=== PATIENT | female | born 1965 | race Caucasian/White ===

== ENCOUNTER 2018-05-22 09:31 | Emergency (ER) | payer MEDICAID ==
[~2018-05-22] VITALS: Ht 160 cm; Wt 65.1 kg
[2018-05-22] MEDS ORDERED: HYDR25TA PO (09:46)
[2018-05-22 09:49] LABS: GLUCOSE,POINT OF CARE 131 MG/DL (70-110)
[2018-05-22 10:05] LABS: BASOPHILS % (AUTO) 0.8 % (0.0-2.0); EOSINOPHILS % (AUTO) 1.4 % (1.0-6.0); HEMOGLOBIN 14.3 g/dL (12.0-16.0); LYMPHOCYTES # (AUTO) 2.5 K/uL (1.0-4.8); LYMPHOCYTES % (AUTO) 19.5 % (22.0-44.0); MEAN CORPUSCULAR HEMOGLOBIN 28.5 pg (26.0-34.0); MEAN CORPUSCULAR HGB CONC 32.6 G/dL (31.0-37.0); MEAN CORPUSCULAR VOLUME 88 fL (80-100); MONOCYTES # (AUTO) 1.3 K/uL (0.1-1.0); MONOCYTES % (AUTO) 9.7 % (2.0-9.0); NEUTROPHILS # (AUTO) 8.9 K/uL (1.8-7.7); NEUTROPHILS % (AUTO) 68.6 % (40.0-70.0); PLATELET COUNT (AUTO) 252 K/uL (150-450); RED BLOOD CELL COUNT(AUTO) 5.02 MIL/uL (4.00-5.20); RED CELL DISTRIBUTION WIDTH 14.4 % (11.5-14.5)
[2018-05-22 10:14] LABS: ANION GAP 7 mmol/L (8-16); CALCIUM, TOTAL 9.8 mg/dL (8.8-10.5); CARBON DIOXIDE 27 mmol/L (22-29); CHLORIDE 104 mmol/L (98-107); CREATININE 1.29 mg/dL (0.60-1.30); GLOMERULAR FILTR. RATE CALC 43 mL/min (>60); GLUCOSE,RANDOM 100 mg/dL (70-110); POTASSIUM 4.1 mmol/L (3.5-5.1); SODIUM SERUM 138 mmol/L (136-145); UREA NITROGEN, BLOOD 42 mg/dL (7-18)
[2018-05-22] MEDS ORDERED: NALOXONE HCL 1 MG/ML 2 ML SYG IVP ONE ×4 (10:15→19:00)
[2018-05-22] MEDS ORDERED: SODIUM CHLORIDE 0.9% 1,000 ML IV ONE ×2 (10:15→13:00)
[2018-05-22 10:20] LABS: ALANINE AMINOTRANSFERASE 33 U/L (12-78); ALBUMIN 3.6 g/dL (3.4-5.0); ALKALINE PHOSPHATASE 91 U/L (46-116); ASPARTATE AMINOTRANSFERASE 25 U/L (15-37); BILIRUBIN,TOTAL 0.2 mg/dL (0.1-1.0); TOTAL PROTEIN, SERUM 8.1 g/dL (6.4-8.2)
[2018-05-22 10:25] LABS: ACETAMINOPHEN < 2 mcg/mL (10-30); SALICYLATE 1.3 mg/dL (2.8-20.0)
[2018-05-22 22:15] VITALS: BP 109/78
== END 2018-05-22 22:19 | disposition home or self-care (01) ==
LOC: EMS 09:31
DX: T40.1X1A Poisoning by heroin, accidental (unintentional), initial encounter (principal); I10 Essential (primary) hypertension; F17.210 Nicotine dependence, cigarettes, uncomplicated; F12.90 Cannabis use, unspecified, uncomplicated; F19.90 Other psychoactive substance use, unspecified, uncomplicated; Y92.830 Public park as the place of occurrence of the external cause
CPT/HCPCS: 36415; 80053; 82962; 85025; 93005; 96374; 96376; 99285; G0480; J2310; J7030; G0481